=== PATIENT | male | born 1965 | race Two or more races ===

== ENCOUNTER 2018-10-20 16:38 | Emergency (ER) | payer MEDICAID, OTHER ==
[~2018-10-20] VITALS: Ht 165.1 cm; Wt 68.0 kg
[2018-10-20 16:38] VITALS: BP 140/72
[2018-10-20] MEDS ORDERED: ACETAMINOPHEN 325 MG TAB PO ONE (18:00)
== END 2018-10-20 18:43 | disposition home or self-care (01) ==
LOC: EDSEX 16:38 → EDBD 16:38 → ER 16:43
DX: R51 Headache (principal); R07.81 Pleurodynia; M25.552 Pain in left hip; M25.512 Pain in left shoulder; E78.5 Hyperlipidemia, unspecified; V43.52XA Car driver injured in collision with other type car in traffic accident, initial encounter; Y93.89 Activity, other specified; Y99.8 Other external cause status; Y92.410 Unspecified street and highway as the place of occurrence of the external cause
CPT/HCPCS: 70450